=== PATIENT | male | born 1955 | race Caucasian/White ===

== ENCOUNTER 2017-08-14 11:13 | Emergency (ER) | payer OTHER ==
[~2017-08-14] VITALS: Ht 182.9 cm; Wt 93.2 kg
[2017-08-14 11:15] VITALS: BP 129/89; PULSE 60; RESP 18; TEMP 98.1; O2SAT 99
[2017-08-14] MEDS ORDERED: MELO15TA20 PO (11:48)
[2017-08-14] MEDS ORDERED: [UNRECOGNIZED DRUG - CODE] TOPICAL (11:48)
[2017-08-14] MEDS ORDERED: LORA-650 PO (11:48)
[2017-08-14] MEDS ORDERED: SIMV20TA PO (11:48)
[2017-08-14] MEDS ORDERED: SODIUM CHLORIDE 0.9% FLUSH 10 ML FLUSH IV FLUSH PRN (12:00)
[2017-08-14] MEDS ORDERED: CLINDAMYCIN 900 MG/NS PREMIX 50 ML IV ONE (12:00)
--- NOTE | 2017-08-14 12:26 | PD ---
HPI Chief Complaint: Skin Problem Time Seen by Provider: 11:38 Travel History International Travel<30 days: No Contact w/Intl Traveler<30days: No Traveled to known affect area: No History of Present Illness HPI Patient 62-year-old male presents emergency Department with infection and cellulitis of the right thumb, he went to the [place] [facility] todayand that he had some streaking going up his arm the recommended he come into the emergency department for evaluation of possibility of starting IV antibiotics. Denies any fevers cough shortness of breath abdominal pain nausea vomiting. Symptoms for the past few days, no injury, gradually worsening. The patient also states that he poked it at home and had purulent drainage from the dorsum of his right thumb. PFSH Past Medical History High Cholesterol: Yes Diverticulitis: Yes GERD: Yes Ulcer: Yes Tetanus Vaccination: < 5 Years Influenza Vaccination: Yes Past Surgical History Abdominal Surgery: Yes (HERNIA) Social History Alcohol Use: Yes (OCC) Tobacco Use: Yes Substance Use: Yes (THC) Allergies-Medications (Allergen,Severity, Reaction): Coded Allergies: No Known Allergies (Unverified , 08/14/17) Reported Meds & Prescriptions Reported Meds & Active Scripts Active Clindamycin (Clindamycin HCl) 150 Mg Cap 300 Mg PO Q6H 10 Days Reported Simvastatin 20 Mg Tab 20 Mg PO DAILY Diflorasone Topical (Diflorasone Diacetate) 0.05% Oint 1 Applic TOPICAL BID Allergy Relief (Loratadine) 10 Mg Tab 10 Mg PO DAILY Meloxicam 15 Mg Tab 15 Mg PO DAILY Review of Systems Except as stated in HPI: all other systems reviewed are Neg Physical Exam Narrative GENERAL: [Well-developed well-nourished no obvious distress SKIN: There is a small abscess with some skin sloughing on the dorsum of the right thumb, proximal to the nailbed, probably jessica-sized. Minimal surrounding erythema without any swelling, I do not appreciate any lymphadenitis lymphangina on the forearm. No swelling of the forearm. HEAD: Atraumatic. Normocephalic. EYES: Pupils equal and round. No scleral icterus. No injection or drainage. ENT: No nasal bleeding or discharge. Mucous membranes pink and moist. NECK: Trachea midline. No JVD. CARDIOVASCULAR: Regular rate and rhythm. No murmur appreciated. RESPIRATORY: No accessory muscle use. Clear to auscultation. Breath sounds equal bilaterally. GASTROINTESTINAL: Abdomen soft, non-tender, nondistended. Hepatic and splenic margins not palpable. MUSCULOSKELETAL: No obvious deformities. No clubbing. No cyanosis. No edema. NEUROLOGICAL: Awake and alert. No obvious cranial nerve deficits. Motor grossly within normal limits. Normal speech. PSYCHIATRIC: Appropriate mood and affect; insight and judgment normal. Data Data Last Documented VS Orders Orders Basic Metabolic Panel (Bmp) (08/14/17 11:52) Complete Blood Count With Diff (08/14/17 11:52) Iv Access Insert/Monitor (08/14/17 11:52) Ecg Monitoring (08/14/17 11:52) Oximetry (08/14/17 11:52) Sodium Chloride 0.9% Flush (Ns Flush) (08/14/17 12:00) Clindamycin 900 Mg/Ns Premix (Cleocin 90 (08/14/17 12:00) Ed Discharge Order (08/14/17 13:33) Labs Laboratory Tests Test 08/14/17 12:55 White Blood Count 8.2 TH/MM3 Red Blood Count 5.09 MIL/MM3 Hemoglobin 15.8 GM/DL Hematocrit 46.1 % Mean Corpuscular Volume 90.6 FL Mean Corpuscular Hemoglobin 31.1 PG Mean Corpuscular Hemoglobin Concent 34.3 % Red Cell Distribution Width 13.5 % Platelet Count 239 TH/MM3 Mean Platelet Volume 7.6 FL Neutrophils (%) (Auto) 56.1 % Lymphocytes (%) (Auto) 29.8 % Monocytes (%) (Auto) 8.5 % Eosinophils (%) (Auto) 4.6 % Basophils (%) (Auto) 1.0 % Neutrophils # (Auto) 4.6 TH/MM3 Lymphocytes # (Auto) 2.4 TH/MM3 Monocytes # (Auto) 0.7 TH/MM3 Eosinophils # (Auto) 0.4 TH/MM3 Basophils # (Auto) 0.1 TH/MM3 CBC Comment DIFF FINAL Differential Comment Blood Urea Nitrogen 21 MG/DL Creatinine 1.06 MG/DL Random Glucose 96 MG/DL Calcium Level 8.7 MG/DL Sodium Level 139 MEQ/L Potassium Level 4.8 MEQ/L Chloride Level 108 MEQ/L Carbon Dioxide Level 25.9 MEQ/L Anion Gap 5 MEQ/L Estimat Glomerular Filtration Rate 71 ML/MIN [facility] Medical Decision Making Medical Screen Exam Complete: Yes Emergency Medical Condition: Yes Differential Diagnosis Cellulitis, sepsis unlikely, abscess, osteomyelitis unlikely. Narrative Course Patient roomed emerged permit, appears quite well and in no distress, has some purulent drainage from the skin sloughing area of the right thumb, just represent some mild infection around trachea versus paronychia. Started draining and not requiring any surgical intervention at this time. Labs were obtained for baseline comparison should the patient need return visit in the future. They are reassuring at this time and no clinical indicators for sepsis at this time. Was given clindamycin in the ER, cleaned myself home. Discussed probiotic use returned ED criteria follow-up with a primary care physician. Diagnosis Primary Impression: Infection of thumb Patient Instructions: Cellulitis (DC), General Instructions Med/Other Pt SpecificInfo: Prescription(s) given Scripts Clindamycin (Clindamycin) 150 Mg Cap 300 MG PO Q6H for Infection for 10 Days, #80 CAP 0 Refills Prov: Selwyn Mortensen MD 08/14/17 Disposition: 01 DISCHARGE HOME Condition: Stable Selwyn Mortensen MD Aug 14, 2017 12:26
[2017-08-14 12:45] VITALS: O2SAT 99
[2017-08-14 13:04] LABS: AUTOMATED NEUTROPHIL # 4.6 TH/MM3 (1.8-7.7); BASOPHIL # 0.1 TH/MM3 (0-0.2); EOSINOPHIL # 0.4 TH/MM3 (0-0.4); EOSINOPHIL % 4.6 % (0.0-4.0); HEMATOCRIT 46.1 % (39.0-51.0); HEMOGLOBIN 15.8 GM/DL (13.0-17.0); LYMPH % 29.8 % (9.0-44.0); LYMPHOCYTE # 2.4 TH/MM3 (1.0-4.8); MEAN CELL VOLUME 90.6 FL (80.0-100.0); MEAN CORPUSCULAR HEMOGLOBIN 31.1 PG (27.0-34.0); MEAN CORPUSCULAR HGB CONC 34.3 % (32.0-36.0); MEAN PLATELET VOLUME 7.6 FL (7.0-11.0); MONO % 8.5 % (0.0-8.0); MONOCYTE # 0.7 TH/MM3 (0-0.9); NEUT % 56.1 % (16.0-70.0); PLATELET COUNT 239 TH/MM3 (150-450); RED BLOOD COUNT 5.09 MIL/MM3 (4.50-5.90); RED CELL DISTRIBUTION WIDTH 13.5 % (11.6-17.2); WHITE BLOOD COUNT 8.2 TH/MM3 (4.0-11.0)
[2017-08-14 13:20] LABS: BICARBONATE 25.9 MEQ/L (21.0-32.0); CALCIUM 8.7 MG/DL (8.5-10.1); CREATININE 1.06 MG/DL (0.60-1.30)
[2017-08-14 13:21] VITALS: BP 136/89; PULSE 53; RESP 16; O2SAT 97
[2017-08-14] MEDS ORDERED: CLIN150C14 PO (13:33)
== END 2017-08-14 15:34 | disposition home or self-care (01) ==
LOC: NEPE 11:13
DX: L08.9 Local infection of the skin and subcutaneous tissue, unspecified (principal); E78.00 Pure hypercholesterolemia, unspecified; F12.90 Cannabis use, unspecified, uncomplicated; Z72.0 Tobacco use
CPT/HCPCS: 80048; 85025; 96374

== ENCOUNTER 2018-01-04 23:04 | Emergency (ER) | payer OTHER ==
[~2018-01-04] VITALS: Ht 180.3 cm; Wt 86.4 kg
[~2018-01-04 23:04] MED LIST: CLIN150C14 PO; LORA-650 PO; MELO15TA20 PO; SIMV20TA PO; [UNRECOGNIZED DRUG - CODE] TOPICAL
[2018-01-04 23:08] VITALS: BP 179/86; PULSE 57; RESP 20; TEMP 97.8; O2SAT 95
[2018-01-05 00:08] VITALS: BP 140/88; PULSE 60; RESP 18; O2SAT 97
[2018-01-05] MEDS ORDERED: oxyCODONE/ACETAMINOPHEN 5 MG/325 MG TAB PO ONE (00:15)
[2018-01-05] MEDS ORDERED: DEXAMETHASONE SOD PHOS 20 MG/5 ML VIAL IM ONE (00:15)
[2018-01-05] MEDS ORDERED: ONDANSETRON ODT 4 MG TAB PO ONE (00:15)
[2018-01-05 00:33] LABS: BILIRUBIN, URINE NEG (NEG); BLOOD, URINE NEG (NEG); GLUCOSE,URINE NEG (NEG); KETONE, URINE NEG (NEG); NITRITE,URINE NEG (NEG); URINE COLOR YELLOW (YELLW/STRAW); URINE LEUKOCYTE ESTERASE NEG (NEG)
--- NOTE | 2018-01-05 00:41 | RADRPT ---
EXAM DATE/TIME: 01/05/2018 00:20 [place] COMPARISON: No previous studies available for comparison. INDICATIONS : Pain MEDICAL HISTORY : Diverticulitis. Diverticulosis. Hypercholesterolemia. SURGICAL HISTORY : Inguinal hernia repair. ENCOUNTER: Initial ACUITY: 2 days PAIN SCORE: 8/10 LOCATION: Right Lumbar, SI joint FINDINGS: Mild rotatory dextroscoliosis. Degenerative disc disease most severe at L2-3. Moderate to severe face t arthropathy. CONCLUSION: 1. Mild rotatory dextroscoliosis. Advanced degenerative disc disease at L2-3. Facet arthropathy. No a cute fracture. Gregory Buck MD on January 05, 2018 at 0:39 Board Certified Radiologist. This report was verified electronically.
[2018-01-05 00:49] LABS: SQUAMOUS EPITHELIAL CELL URINE 0-5 /hpf (0-5); WBC, URINE 0-2 /hpf (0-5)
[2018-01-05 01:08] VITALS: BP 147/82; PULSE 58; RESP 18; O2SAT 97
[2018-01-05 01:50] VITALS: RESP 18
[2018-01-05 02:30] VITALS: BP 144/83
--- NOTE | 2018-01-05 07:37 | PD ---
HPI Chief Complaint: Back/ Neck Pain or Injury Time Seen by Provider: 00:11 Travel History International Travel<30 days: No Contact w/Intl Traveler<30days: No Traveled to known affect area: No History of Present Illness HPI 62-year-old male presents to the emergency department by private transportation the care of family for complaint right-sided low back pain radiating into the buttock without lower extremity numbness tingling or weakness. Symptoms worsen with movement and palpation. Patient is used [id number] ibuprofen and leftover prescription of Robaxin. Patient denies any injury or fall. Patient states symptoms worsened by range of motion and palpation. Patient presented this time to be evaluated for ongoing symptoms. Denies chest pain shortness of breath abdominal pain also denies history of hypertension but does admit to high cholesterol and tobacco use. Patient's had no nausea no vomiting no neck jaw upper back mid scapular or upper extremity numbness tingling or weakness. No abdominal pain. PFSH Past Medical History Narrative Medical High cholesterol low back pain tobacco use alcohol use marijuana use; nursing notes reviewed High Cholesterol: Yes Diverticulitis: Yes GERD: Yes Inguinal Hernia: Yes Ulcer: Yes Past Surgical History Abdominal Surgery: Yes (HERNIA) Social History Alcohol Use: Yes (OCC) Tobacco Use: Yes (1/2ppd) Substance Use: Yes (THC) Allergies-Medications (Allergen,Severity, Reaction): Coded Allergies: No Known Allergies (Unverified , 01/04/18) Reported Meds & Prescriptions Reported Meds & Active Scripts Active Reported Simvastatin 20 Mg Tab 20 Mg PO DAILY Diflorasone Topical (Diflorasone Diacetate) 0.05% Oint 1 Applic TOPICAL BID Allergy Relief (Loratadine) 10 Mg Tab 10 Mg PO DAILY Meloxicam 15 Mg Tab 15 Mg PO DAILY Review of Systems Except as stated in HPI: all other systems reviewed are Neg Physical Exam Narrative GENERAL: Well-developed well-nourished male no acute distress no respiratory distress SKIN: Warm and dry. HEAD: Normocephalic. EYES: No scleral icterus. No injection or drainage. NECK: Supple, trachea midline. No JVD or lymphadenopathy. CARDIOVASCULAR: Regular rate and rhythm without murmurs, gallops, or rubs. Bilateral radial pulses 2+ to palpation bilateral dorsalis pedis pulses 2+ to palpation. RESPIRATORY: Breath sounds equal bilaterally. No accessory muscle use. GASTROINTESTINAL: Abdomen soft, non-tender, nondistended. MUSCULOSKELETAL: No cyanosis, or edema. BACK: Nontender without obvious deformity. Negative straight leg raising. 5/5 motor strength. DTRs 2+ and equal bilateral upper extremities and lower extremities. Sensory exam intact. No clonus. No CVA tenderness. Data Data Last Documented VS Vital Signs Date Time Temp Pulse Resp B/P (MAP) Pulse Ox O2 Delivery O2 Flow Rate FiO2 01/05/18 02:30 59 18 144/83 (103) 100 01/05/18 01:08 Room Air 01/04/18 23:08 97.8 Orders Orders Dexamethasone Inj (Decadron Inj) (01/05/18 00:15) Ondansetron Odt (Zofran Odt) (01/05/18 00:15) Oxycodone-Acetamin 5-325 Mg (Percocet (01/05/18 00:15) Spine, Lumbar - Ltd (Ap & Lat) (01/05/18 ) Urinalysis - C+S If Indicated (01/05/18 00:11) Labs Laboratory Tests Test 01/05/18 00:28 Urine Color YELLOW Urine Turbidity CLEAR Urine pH 6.0 Urine Specific Eva 1.020 Urine Protein NEG mg/dL Urine Glucose (UA) NEG mg/dL Urine Ketones NEG mg/dL Urine Occult Blood NEG Urine Nitrite NEG Urine Bilirubin NEG Urine Urobilinogen 0.2 MG/DL Urine Leukocyte Esterase NEG Urine WBC 0-2 /hpf Urine Squamous Epithelial Cells 0-5 /hpf Microscopic Urinalysis Comment CULT NOT INDICATED MDM Medical Decision Making Medical Screen Exam Complete: Yes Emergency Medical Condition: Yes Medical Record Reviewed: Yes Interpretation(s) Last Impressions Lumbar Spine X-Ray 01/05/18 0000 Signed Impressions: Service Date/Time: Friday, January 05, 2018 00:20 - CONCLUSION: 1. Mild rotatory dextroscoliosis. Advanced degenerative disc disease at L2-3. Facet arthropathy. No acute fracture. Gregory Buck MD Vital Signs Date Time Temp Pulse Resp B/P (MAP) Pulse Ox O2 Delivery O2 Flow Rate FiO2 01/05/18 02:30 59 18 144/83 (103) 100 01/05/18 01:50 18 01/05/18 01:08 58 18 147/82 (103) 97 Room Air 01/05/18 00:08 60 18 140/88 (105) 97 Room Air 01/04/18 23:14 18 01/04/18 23:08 97.8 57 20 179/86 (117) 95 UA: negative Differential Diagnosis Back pain sciatica H&P degenerative disc disease degenerative joint disease renal colic; no palpable total pulsatile mass low suspicion for abdominal aortic aneurysm or claudication Narrative Course Imaging study ordered reveals no acute bony abnormality marked degenerative disc disease is noted patient given prescription for prednisone Percocet No. 10 no refills and work excuse 3 days Patient clinically improved in the emergency department after one-time dose of IM Decadron and oral Percocet had taken ibuprofen prior to arrival to the emergency department Patient is stable for outpatient management and follow-up with his primary care provider Diagnosis Primary Impression: Lumbar degenerative disc disease Referrals: [facility] ([facility] call for appointment Patient Instructions: General Instructions Departure Forms: Tests/Procedures Disposition: 01 DISCHARGE HOME Katy Castellon MD January 05, 2018 07:37
== END 2018-01-05 02:30 | disposition home or self-care (01) ==
LOC: PHED 23:04
DX: M51.36 Other intervertebral disc degeneration, lumbar region (principal); E78.00 Pure hypercholesterolemia, unspecified; K21.9 Gastro-esophageal reflux disease without esophagitis; F17.200 Nicotine dependence, unspecified, uncomplicated
CPT/HCPCS: 72100; 81001; 96372; 99283; J1100